=== PATIENT | female | born 1950 | race Asian ===

== ENCOUNTER 2021-05-22 13:07 | Outpatient (CLI) | payer OTHER | END 2021-05-22 19:08 | disposition home or self-care (01) | LOC: MRI 13:07 | PROVIDERS: ATTEND Neurological Surgery | DX: M48.54XA Collapsed vertebra, not elsewhere classified, thoracic region, initial encounter for fracture (principal) ==

== ENCOUNTER 2021-05-26 10:52 | Outpatient (CLI) | payer OTHER | END 2021-05-26 21:47 | disposition home or self-care (01) | LOC: RAD 10:52 | PROVIDERS: ATTEND Neurological Surgery | DX: M54.16 Radiculopathy, lumbar region (principal) ==